=== PATIENT | male | born 1980 | race Caucasian/White ===

== ENCOUNTER → 2021-05-14 | Outpatient (CLI) | payer OTHER ==
[2021-05-17 02:07] LABS: CHLAMYDIA TRACHOMATIS, NAA Negative (Negative)
== END | disposition home or self-care (01) ==
LOC: LAB SHORT 18:11 → LAB 18:11
PROVIDERS: Nurse Practitioner Family
DX: Z11.59 Encounter for screening for other viral diseases (principal)
CPT/HCPCS: 87491; 87591

== ENCOUNTER 2023-01-18 11:50 | Emergency (ER) | payer OTHER ==
[~2023-01-18] VITALS: Ht 180.3 cm; Wt 72.6 kg
[2023-01-18 11:55] VITALS: BP 135/95
== END 2023-01-18 15:48 | disposition home or self-care (01) ==
LOC: ER 11:50
DX: H10.31 Unspecified acute conjunctivitis, right eye (principal); Z87.891 Personal history of nicotine dependence
CPT/HCPCS: 99283; A9270; J7030